=== PATIENT | male | born 1995 | race American Indian/Alaskan Native ===

== ENCOUNTER 2019-07-09 15:01 | Emergency (ER) | payer BC ==
[2019-07-09 15:12] VITALS: BP 126/90
[2019-07-09] MEDS ORDERED: LIDOCAINE-MPF (1%) 10 MG/1 ML VIAL 5 ML ONE (15:57)
[2019-07-09] MEDS ORDERED: LIDOCAINE-MPF (1%) 10 MG/1 ML VIAL 5 ML INFILTRATI ONE (16:00)
--- NOTE | 2019-07-09 16:17 | Emergency Department Report ---
ED General Adult HPI - General Chief complaint: Medical Clearance Stated complaint: ASTHMA PUI?: No Time Seen by Provider: 07/09/19 15:39 Source: patient Mode of arrival: Ambulatory Limitations: No Limitations - History of Present Illness Initial comments: This is a 23-year-old male with a history of sports induced asthma who presents the ED complaining of right earlobe pain and foreign body stuck in his earlobe. Patient states that he took his hearing of this morning and noticed that the back did not come off. Patient noticed some swelling to the right earlobe. Patient also states that he is out of his Symbicort prescription and had a small attack this morning. Patient denies fever/chills/nausea vomiting/urinary symptoms/cough/ - Related Data Previous Rx's Medication Instructions Recorded Last Taken Type Albuterol INH(or & Nicu Only) 2 puff IH QID PRN #8.5 gram 07/09/19 Unknown Rx [ProAir HFA Inhaler] Budesonide/Formoterol Fumarate 2 puff IH DAILY #1 [email or web address] 07/09/19 Unknown Rx [Symbicort 160-4.5 Mcg Inhaler] Allergies Allergy/AdvReac Type Severity Reaction Status Date / Time No Known Allergies Allergy Verified 07/09/19 15:08 ED Review of Systems ROS: Stated complaint: ASTHMA Other details as noted in HPI Comment: All other systems reviewed and negative ED Past Medical Hx - Past Medical History Previous Medical History?: Yes Hx Asthma: Yes - Surgical History Past Surgical History?: No - Social History Smoking Status: Never Smoker Substance Use Type: None - Medications Home Medications: Home Medications Medication Instructions Recorded Confirmed Last Taken Type Albuterol INH(or & Nicu Only) 2 puff IH QID PRN #8.5 gram 07/09/19 Unknown Rx [ProAir HFA Inhaler] Budesonide/Formoterol Fumarate 2 puff IH DAILY #1 [email or web address] 07/09/19 Unknown Rx [Symbicort 160-4.5 Mcg Inhaler] ED Physical Exam - General Limitations: No Limitations General appearance: alert, in no apparent distress - Head Head exam: Present: atraumatic, normocephalic - Eye Eye exam: Present: normal appearance - ENT ENT exam: Present: mucous membranes moist - Expanded ENT Exam Expanded Ear exam: Present: other (Right earlobe mild swelling, foreign body palpated.) - Neck Neck exam: Present: normal inspection - Respiratory Respiratory exam: Present: normal lung sounds bilaterally. Absent: respiratory distress - Cardiovascular Cardiovascular Exam: Present: regular rate, normal rhythm. Absent: systolic murmur, diastolic murmur, rubs, gallop - GI/Abdominal GI/Abdominal exam: Present: soft, normal bowel sounds - Rectal Rectal exam: Present: deferred - Extremities Exam Extremities exam: Present: normal inspection - Back Exam Back exam: Present: normal inspection - Neurological Exam Neurological exam: Present: alert, oriented X3 - Psychiatric Psychiatric exam: Present: normal affect, normal mood - Skin Skin exam: Present: warm, dry, intact, normal color. Absent: rash ED Course Vital Signs 07/09/19 15:10 Temperature 98.0 F Pulse Rate 92 H Respiratory 16 Rate Blood Pressure 126/90 O2 Sat by Pulse 100 Oximetry ED Medical Decision Making - Medical Decision Making This 23-year-old male presents with foreign body in the right earlobe. Earlobe was cleaned with Betadine and then injected with 1 cc of lidocaine. 10 blade scalpel was used to make a small incision and foreign body was removed. Wound was cleaned and sterilely dressed. Medication refill. I discussed with patient to follow-up with the primary care physician. Referrals given to patient and need to follow-up. Critical care attestation.: If time is entered above; I have spent that time in minutes in the direct care of this critically ill patient, excluding procedure time. ED Disposition Clinical Impression: Foreign body (FB) in soft tissue Disposition: DC-01 TO HOME OR SELFCARE Is pt being admited?: No Does the pt Need Aspirin: No Condition: Stable Instructions: Soft Tissue Foreign Body (ED) Additional Instructions: Make sure to follow up with the primary care physician as discussed. If you have any worsening symptoms or develop new symptoms please return to ED immediately. Prescriptions: Albuterol INH(or & Nicu Only) [ProAir HFA Inhaler] 2 puff IH QID PRN #8.5 gram PRN Reason: Shortness Of Breath Budesonide/Formoterol Fumarate [Symbicort 160-4.5 Mcg Inhaler] 2 puff IH DAILY #1 [email or web address] Referrals: PRIMARY CARE, [Primary Care Provider] - 3-5 Days [facility] [Outside] - 3-5 Days [facility] [Outside] - 3-5 Days [facility] [Outside] - 3-5 Days [facility] [Provider Group] - 3-5 Days Forms: Work/School Release Form(ED) Time of Disposition: 17:04
[2019-07-09] MEDS ORDERED: SILVER NITRATE APPLICATOR 1 EA TP ONE ×2 (16:39→17:11)
== END 2019-07-09 17:14 | disposition home or self-care (01) ==
LOC: ED 15:01
DX: T16.1XXA Foreign body in right ear, initial encounter (principal); J45.909 Unspecified asthma, uncomplicated; X58.XXXA Exposure to other specified factors, initial encounter
CPT/HCPCS: 99282